=== PATIENT | male | born 1990 | race Asian ===

== ENCOUNTER 2020-01-07 09:35 | Emergency (ER) | payer OTHER ==
[~2020-01-07] VITALS: Ht 177.8 cm; Wt 86.4 kg
[2020-01-07 09:45] VITALS: BP 163/109
== END 2020-01-07 11:04 | disposition home or self-care (01) ==
LOC: ER 09:35
DX: Z20.828 Contact with and (suspected) exposure to other viral communicable diseases (principal)
CPT/HCPCS: 99283; U0003